=== PATIENT | female | born 1960 | race Caucasian/White ===

== ENCOUNTER → 2017-05-05 | Outpatient (CLI) | payer MEDICARE ==
[~2017-05-05] MED LIST: 0.9 % SODIUM CHLORIDE 10 ML VIAL ONE; IOHEXOL 300 MG/ML 50 ML VIAL. ONE; LIDOCAINE 1% PF 30 ML VIAL. ONE; methylPREDNISolone ACETATE 80 MG/ML VIAL. ONE
== END | disposition home or self-care (01) ==
LOC: SURG 08:49
PROVIDERS: ATTEND Anesthesiology Pain Medicine
DX: M54.16 Radiculopathy, lumbar region (principal)
CPT/HCPCS: 62323; 99205; J1040; J2001; Q9967

== ENCOUNTER → 2017-10-06 | Outpatient (CLI) | payer MEDICARE, MEDICAID | END | disposition home or self-care (01) | LOC: SURG 13:34 | PROVIDERS: ATTEND Anesthesiology Pain Medicine | DX: M54.16 Radiculopathy, lumbar region (principal); M47.816 Spondylosis without myelopathy or radiculopathy, lumbar region; G89.4 Chronic pain syndrome; F11.90 Opioid use, unspecified, uncomplicated | CPT/HCPCS: 99214 ==

== ENCOUNTER → 2017-11-25 | Outpatient (CLI) | payer MEDICARE, MEDICAID | END | disposition home or self-care (01) | LOC: SURG 09:33 | PROVIDERS: ATTEND Anesthesiology Pain Medicine | DX: M47.816 Spondylosis without myelopathy or radiculopathy, lumbar region (principal); M51.36 Other intervertebral disc degeneration, lumbar region; M96.1 Postlaminectomy syndrome, not elsewhere classified | CPT/HCPCS: 99214 ==

== ENCOUNTER → 2017-12-16 | Outpatient (CLI) | payer MEDICARE, MEDICAID | LOC: SURG 10:13 | PROVIDERS: ATTEND Anesthesiology Pain Medicine | DX: M54.16 Radiculopathy, lumbar region (principal); Z72.89 Other problems related to lifestyle; Z87.891 Personal history of nicotine dependence; Z87.39 Personal history of other diseases of the musculoskeletal system and connective tissue; Z86.73 Personal history of transient ischemic attack (TIA), and cerebral infarction without residual deficits | CPT/HCPCS: 62323; J1040; J2001; Q9967 ==

== ENCOUNTER 2018-01-10 19:50 | Emergency (ER) | payer MEDICARE, MEDICAID ==
[~2018-01-10] VITALS: Ht 170.2 cm; Wt 68.9 kg
--- NOTE | 2018-01-10 19:54 | ED.ADGEN ---
Adult General Chief Complaint Chief Complaint ".. I was up on a 6' ladder in my kitchen.. I attempted to stepped across to kitchen counter... and I went down on my butt, tail bone... and landed my Rt. arm and then on my Lt side my chest, back and spine...I was able to drive my self here.. but I am really hurting..." HPI HPI Patient is a 57 year old female who presents with above hx and complaints of fall while stepping off 6' ladder to kitchen counter. Pt. had generalized pain , but localized to back, pelvis and femur. Pt. denies head injury. Pt. was able to drive herself here and walk into ED. Pt. has multiple contusions. Pt. denies other injury. Hx. of recent dx. of UTI- Dr. Javier office. Not currently on antibiotics. Review of Systems Review of Systems Constitutional: Denies fever or chills [] Eyes: Denies change in visual acuity, redness, or eye pain [] HENT: Denies nasal congestion or sore throat [] Respiratory: Denies cough or shortness of breath [] Cardiovascular: No additional information not addressed in HPI [] GI: Denies abdominal pain, nausea, vomiting, bloody stools or diarrhea [] : Denies dysuria or hematuria [] Musculoskeletal: complaints of multiple contusions, arm and leg pain, back pain , pelvic pain Integument: Denies rash or skin lesions [] Neurologic: Denies headache, focal weakness or sensory changes [] Endocrine: Denies polyuria or polydipsia [] All other systems were reviewed and found to be within normal limits, except as documented in this note. Family History Family History Sister hx of Renal Cell Cancer Current Medications Current Medications Current Medications Medications (Trade) Dose Ordered Sig/Feli Start Time Stop Time Status Last Admin Dose Admin Ceftriaxone Sodium 1 gm/ Sodium Chloride 50 ml @ 100 mls/hr 1X ONCE 01/10/18 23:00 01/10/18 23:19 DC 01/10/18 22:49 100 MLS/HR Ceftriaxone Sodium (Rocephin) 1 gm STK-MED ONCE 01/10/18 22:45 01/10/18 22:46 DC Cephalexin HCl (Keflex) 250 mg STK-MED ONCE 01/10/18 23:09 01/10/18 23:10 DC Iohexol (Omnipaque 300 Mg/ml) 75 ml 1X ONCE 01/10/18 21:15 01/10/18 21:16 DC 01/10/18 21:10 75 ML Lactated Ringer's 1,000 ml @ 1,000 mls/hr Q1H 01/10/18 20:30 01/10/18 21:29 DC 01/10/18 21:28 1,000 MLS/HR Morphine Sulfate (Morphine 10mg Syringe) 10 mg 1X ONCE 01/10/18 23:00 01/10/18 23:02 DC 01/10/18 23:14 10 MG Orphenadrine Citrate (Norflex) 60 mg 1X ONCE 01/10/18 20:15 01/10/18 20:16 DC 01/10/18 21:27 60 MG Sodium Chloride 50 ml @ As Directed STK-MED ONCE 01/10/18 22:45 01/10/18 22:46 DC Allergies Allergies Allergies Coded Allergies Type Severity Reaction Last Updated Verified No Known Drug Allergies 01/10/18 No Physical Exam Physical Exam Constitutional: in o acute distress, non-toxic appearance. [] HENT: Normocephalic, atraumatic, bilateral external ears normal, oropharynx moist, no oral exudates, nose normal. [] Eyes: PERRLA, EOMI, conjunctiva normal, no discharge. [] Neck: Normal range of motion, no tenderness, supple, no stridor. [] Cardiovascular:Heart rate regular rhythm, no murmur [] Lungs & Thorax: Bilateral breath sounds equal with scattered wheezes on auscultation []Chest wall and back pain Abdomen: Bowel sounds normal, soft, no tenderness, no masses, no pulsatile masses. [] lt. flank tenderness and Lt. hip. Skin: Warm, dry, no erythema, no rash. [] contusions Back: thoracic and lumbar tenderness, Lt CVA tenderness. [] Extremities: Lt. hip, tenderness, no cyanosis, no clubbing, ROM intact, no edema. [] Neurologic: Alert and oriented X 3, normal motor function, normal sensory function, no focal deficits noted. [] Psychologic: Affect anxious , judgement normal, mood normal. [] Current Patient Data Vital Signs Vital Signs Date Time Temp Pulse Resp B/P (MAP) Pulse Ox O2 Delivery O2 Flow Rate FiO2 01/10/18 23:14 16 95 01/10/18 22:30 79 112/72 (85) Room Air 01/10/18 20:11 98.2 Lab Results Laboratory Tests Test 01/10/18 20:19 01/10/18 21:30 White Blood Count 7.1 x10^3/uL (4.0-11.0) Red Blood Count 4.37 x10^6/uL (3.50-5.40) Hemoglobin 13.8 g/dL (12.0-15.5) Hematocrit 40.3 % (36.0-47.0) Mean Corpuscular Volume 92 fL (79-100) Mean Corpuscular Hemoglobin 32 pg (25-35) Mean Corpuscular Hemoglobin Concent 34 g/dL (31-37) Red Cell Distribution Width 15.0 % (11.5-14.5) H Platelet Count 273 x10^3/uL (140-400) Neutrophils (%) (Auto) 63 % (31-73) Lymphocytes (%) (Auto) 29 % (24-48) Monocytes (%) (Auto) 7 % (0-9) Eosinophils (%) (Auto) 0 % (0-3) Basophils (%) (Auto) 0 % (0-3) Neutrophils # (Auto) 4.5 x10^3uL (1.8-7.7) Lymphocytes # (Auto) 2.1 x10^3/uL (1.0-4.8) Monocytes # (Auto) 0.5 x10^3/uL (0.0-1.1) Eosinophils # (Auto) 0.0 x10^3/uL (0.0-0.7) Basophils # (Auto) 0.0 x10^3/uL (0.0-0.2) Prothrombin Time 9.3 SEC (9.4-11.4) L Prothrombin Time INR 0.9 (0.9-1.1) PTT 26 SEC (23-33) Sodium Level 143 mmol/L (136-145) Potassium Level 4.0 mmol/L (3.5-5.1) Chloride Level 107 mmol/L (98-107) Carbon Dioxide Level 26 mmol/L (21-32) Anion Gap 10 (6-14) Blood Urea Nitrogen 18 mg/dL (7-20) Creatinine 1.0 mg/dL (0.6-1.0) Estimated GFR (Cockcroft-Gault) 57.1 Glucose Level 106 mg/dL (70-99) H Calcium Level 9.2 mg/dL (8.5-10.1) Total Bilirubin 0.4 mg/dL (0.2-1.0) Direct Bilirubin 0.1 mg/dL (0.0-0.2) Aspartate Amino Transferase (AST) 15 U/L (15-37) Alanine Aminotransferase (ALT) 19 U/L (14-59) Alkaline Phosphatase 121 U/L (46-116) H Creatine Kinase 70 U/L (26-192) Troponin I Quantitative < 0.017 ng/mL (0-0.055) BM-Nyh-X-Type Natriuretic Peptide 63 pg/mL (0-124) Total Protein 7.5 g/dL (6.4-8.2) Albumin 3.6 g/dL (3.4-5.0) Lipase 395 U/L (73-393) H Urine Collection Type Unknown Urine Color Brown Urine Clarity Turbid Urine pH 5.0 Urine Specific [place] 1.025 Urine Protein (NEG-TRACE) Urine Glucose (UA) mg/dL (NEG) Urine Ketones (Stick) mg/dL (NEG) Urine Blood (NEG) Urine Nitrite (NEG) Urine Bilirubin Neg (NEG) Urine Urobilinogen Dipstick mg/dL (0.2 mg/dL) Urine Leukocyte Esterase (NEG) Urine RBC 1-2 /HPF (0-2) Urine WBC 5-10 /HPF (0-4) Urine Squamous Epithelial Cells Many /LPF Urine Bacteria Many /HPF (0-FEW) Urine Hyaline Casts Few /HPF Urine Mucus Mod /LPF Urine Opiates Screen Pos (NEG) Urine Methadone Screen Neg (NEG) Urine Barbiturates Neg (NEG) Urine Phencyclidine Screen Neg (NEG) Urine Amphetamine/Methamphetamine Neg (NEG) Urine Benzodiazepines Screen Neg (NEG) Urine Cocaine Screen Neg (NEG) Urine Cannabinoids Screen Pos (NEG) Urine Ethyl Alcohol Neg (NEG) EKG EKG My interpretation of EKG shows a sinus rhythm at 82 bpm no acute morphology.[] Radiology/Procedures Radiology/Procedures My interpretation of chest x-ray shows no acute cardiopulmonary findings. Findings of emphysema. And some hilar fullness. My interpretation of pelvis shows no obvious fracture dislocation. My interpretation of Lt. arm shows no obvious fracture or dislocation and elbow. My interpretation Lt. shoulder shows no obvious fracture dislocation[]. My interpretation Lt. humerus shows no obvious fracture dislocation. CT findings of spine shows no obvious fracture or dislocations. CT of chest and abdomen shows a 1.5 cm left renal mass. Also has findings of pulmonary nodules. Bullous emphysema. Course & Med Decision Making Course & Med Decision Making Pertinent Labs and Imaging studies reviewed. (See chart for details). Rest. Ice packs. Expect increased discomfort and stiffness. Take Tylenlon and ibuprofen for pain. Take Vicoprofen for marked pain. Keep follow up with primary. Will need follow up for pul. nodules and Lt. renal mass. May need bx of Lt. renal mass. Follow up urine cultures. Take Keflex 500 three times a day. Stop smoking. Must followup. Return if any concerns. [] Final Impression Final Impression 1. Fall 2. Contusions Rt arm, back, Lt. hip, chest 3. Sprain / Strain, Rt arm, back, lt. hip, chest 4. Hx. of recent UTI- per hx from her Dr. office- 5. Lt. flank contusions 6. Pulmonary - bullous emphysema, Pul. nodules 7. Lt. Renal Mass 8. Elevate Lipase [] Dragon Disclaimer Dragon Disclaimer This electronic medical record was generated, in whole or in part, using a voice recognition dictation system. SARBJIT DAMON MD Jan 10, 2018 19:54
--- NOTE | 2018-01-10 20:14 | EKG ---
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
[2018-01-10] MEDS ORDERED: MORPHINE SULFATE 10 MG/ML SYRINGE. SQ ONE ×2 (20:15→23:00)
[2018-01-10] MEDS ORDERED: ORPHENADRINE CITRATE 60 MG/2 ML VIAL. IM ONE (20:15)
[2018-01-10] MEDS ORDERED: IV RINGERS SOLUTION,LACTATED 1,000 ML IV SCH (20:30)
[2018-01-10 20:45] LABS: BASO % 0 % (0-3); EOS % 0 % (0-3); HEMATOCRIT 40.3 % (36.0-47.0); HEMOGLOBIN 13.8 g/dL (12.0-15.5); LYMPH # 2.1 x10^3/uL (1.0-4.8); LYMPH % 29 % (24-48); MEAN CORPUSCULAR HEMOGLOBIN 32 pg (25-35); MEAN CORPUSCULAR HGB CONC 34 g/dL (31-37); MEAN CORPUSCULAR VOLUME 92 fL (79-100); MONO # 0.5 x10^3/uL (0.0-1.1); MONO % 7 % (0-9); NEUT # 4.5 x10^3uL (1.8-7.7); NEUT % 63 % (31-73); PLATELET COUNT 273 x10^3/uL (140-400); RED BLOOD COUNT 4.37 x10^6/uL (3.50-5.40); WHITE BLOOD COUNT 7.1 x10^3/uL (4.0-11.0)
[2018-01-10 20:55] LABS: ALBUMIN 3.6 g/dL (3.4-5.0); CALCIUM 9.2 mg/dL (8.5-10.1); DIRECT BILIRUBIN 0.1 mg/dL (0.0-0.2); GFR 57.1; TOTAL BILIRUBIN 0.4 mg/dL (0.2-1.0); TOTAL PROTEIN 7.5 g/dL (6.4-8.2)
--- NOTE | 2018-01-10 21:12 | RAD ---
CT scan of the pelvis without contrast 01/10/2018 CLINICAL HISTORY: Fall from ladder. Pelvic and left hip pain. TECHNIQUE: Unenhanced, contiguous, 0.625 mm axial sections were obtained through the pelvis and both hips. 5 mm reconstructed sagittal, axial and coronal images were obtained. One or more of the following individualized dose reduction techniques were utilized for this study: 1. Automated exposure control. 2. Adjustment of the mA and/or kV according to patient size. 3. Use of iterative reconstruction technique. FINDINGS: No pelvic bone fracture is seen. Both hips are intact. Mild degenerative changes are seen involving both hips and both SI joints. Atherosclerotic calcification of the distal abdominal aorta and its branches is noted. No free fluid or pelvic hematoma is noted. IMPRESSION: No acute abnormality. Electronically signed by: Jim Comer MD (01/10/2018 9:08 PM) [facility]
[2018-01-10] MEDS ORDERED: IOHEXOL 300 MG/ML 75 ML VIAL. IV ONE (21:15)
--- NOTE | 2018-01-10 21:19 | RAD ---
CT scan of the thoracic and lumbar spine without contrast 01/10/2018 CLINICAL HISTORY: Mid and low back pain post fall from ladder. TECHNIQUE: Unenhanced, contiguous, 0.625 mm axial sections were obtained through the thoracic and lumbar spine. 3 mm reconstructed sagittal, axial and coronal images were obtained. FINDINGS: Sagittal and coronal reconstructed images demonstrate minimal S-shaped curvature of the thoracolumbar spine. The patient is post anterior discectomy and fusion using an anterior plate, bone screws and bone graft material extending from C5 to C7. Degenerative changes are seen involving the thoracic and lumbar disc spaces consisting of varying degrees of disc space narrowing, vertebral endplate sclerosis and minimal to mild anterior and posterior vertebral body osteophyte formation. Atherosclerotic calcification is seen involving the thoracic and abdominal aorta. No fracture or subluxation of the thoracic or lumbar vertebra is seen. The patient is post left hemilaminotomy at L3-4 and L5-S1 and bilateral hemilaminotomy at L4-5. IMPRESSION: No fracture or subluxation of the thoracic or lumbar vertebra is seen. Electronically signed by: Jim Comer MD (01/10/2018 9:16 PM) [facility]
[2018-01-10 21:52] LABS: BARBITURATES NEG (NEG); BENZODIAZEPINES NEG (NEG); CANNABINOIDS POS (NEG); COCAINE NEG (NEG); METHADONE NEG (NEG); OPIATES POS (NEG); PHENCYCLIDINE NEG (NEG)
--- NOTE | 2018-01-10 21:52 | RAD ---
CT scan of the chest, abdomen and pelvis with contrast 01/10/2018 CLINICAL HISTORY: Fall from ladder with chest, abdominal and pelvic pain. TECHNIQUE: After the intravenous administration of 75 cc of Omnipaque 300 only, contiguous, 3 mm axial sections were obtained through the chest, abdomen and pelvis. One or more of the following individualized dose reduction techniques were utilized for this study: 1. Automated exposure control. 2. Adjustment of the mA and/or kV according to patient size. 3. Use of iterative reconstruction technique. FINDINGS: No mediastinal hematoma is seen. Scattered atherosclerotic calcification of the thoracic aorta and its branches is noted. The thoracic aorta is mildly tortuous but tapers normally. The heart is normal in size. Prominent likely reactive mediastinal and hilar lymph nodes are seen. They measure 1 to 1.6 cm in size. Small calcified hilar and mediastinal lymph nodes are noted. Mild bullous emphysematous changes are seen involving both lungs. Minimal dependent subsegmental atelectasis is seen bilaterally. No area of consolidation is seen. No pneumothorax or pleural effusion is noted. The liver, spleen, and adrenal glands are within normal limits. Prominence of the main pancreatic duct is seen. No acute focal abnormality of the pancreas is noted. Several rounded low-attenuation lesions are seen scattered throughout both kidneys. These measure 3 mm to 5 mm in size. They likely represent cysts. A 1.5 cm slightly heterogeneous solid-appearing rounded mass is seen involving the superior pole of the left kidney. Its CT appearance is nonspecific. A small renal cell carcinoma is not excluded. Moderate atherosclerotic calcification of the abdominal aorta and its branches is noted. The abdominal aorta tapers normally. Surgical clips are seen within the gallbladder fossa consistent with a cholecystectomy. No free fluid or free air is seen within the abdomen. There is no evidence of bowel obstruction. Images through pelvis demonstrate the urinary bladder distended with urine. Calcifications are seen within the pelvis consistent with phleboliths. No free fluid is seen. No pelvic hematoma is noted. Degenerative changes are seen involving the thoracic and lumbar spine. No acute fracture is seen. IMPRESSION: 1. 1.5 cm solid-appearing mass is seen projecting laterally from the superior pole of the left kidney. A small renal cell carcinoma is not excluded. 2. No acute abnormality is seen involving the chest, abdomen or pelvis. Electronically signed by: Jim Comer MD (01/10/2018 9:48 PM) [facility]
[2018-01-10 22:00] LABS: BILIRUBIN,URINE NEG (NEG); CLARITY,URINE TURBID; COLOR,URINE BROWN; HYALINE CASTS, URINE FEW /HPF
--- NOTE | 2018-01-10 22:00 | RAD ---
Three-view left shoulder radiographs to include AP and lateral left humerus radiographs and 3 view radiographs of the left elbow 01/10/2018 CLINICAL HISTORY: Fall from ladder with left shoulder, arm and elbow pain. AP internal and external rotation and transscapular digital radiographs of the left shoulder were obtained. AP and lateral radiographs of the left humerus were obtained. AP, lateral and oblique digital radiographs of the left elbow were obtained. No fracture or dislocation of the left shoulder, left humerus or left elbow is seen. There is no radiographic evidence of a left elbow joint effusion. Mild degenerative changes are seen involving the left AC and left humeral joints along with the left elbow. IMPRESSION: No fracture or dislocation is seen. Electronically signed by: Jim Comer MD (01/10/2018 9:56 PM) [facility]
[2018-01-10 22:02] LABS: BACTERIA,URINE MANY /HPF (0-FEW); SQUAMOUS EPITHELIAL CELL,UR MANY /LPF
[2018-01-10 22:30] VITALS: BP 112/72
[2018-01-10] MEDS ORDERED: HYDR-79 PO (22:39)
[2018-01-10 22:40] LABS: AMPHETAMINE/METHAMPHETAMINE NEG (NEG)
[2018-01-10] MEDS ORDERED: cefTRIAXone SODIUM 1 GM VIAL IV ONE (22:45)
[2018-01-10] MEDS ORDERED: IV NORMAL SALINE 50ML 50 ML ONE (22:45)
[2018-01-10] MEDS ORDERED: CEPH-264 PO (23:03)
[2018-01-10] MEDS ORDERED: CEPHALEXIN 250 MG CAPSULE ONE (23:09)
--- NOTE | 2018-01-10 23:35 | RAD ---
PA and lateral chest radiographs 01/10/2018 CLINICAL HISTORY: Fall from ladder with chest trauma. PA and lateral digital radiographs of the chest were obtained. An anterior plate and bone screws overlies the lower cervical spine. The cardiac silhouette is within normal limits in size. Atherosclerotic calcification of the thoracic aorta is seen. No acute pulmonary infiltrate is noted. No pneumothorax or pleural effusion is seen. The osseous structures are grossly intact. IMPRESSION: No acute abnormality is seen. Electronically signed by: Jim Comer MD (01/10/2018 11:31 PM) [facility]
[2018-01-11] MEDS ORDERED: CEPHALEXIN 250 MG CAPSULE PO SCH (09:00)
== END 2018-01-10 23:18 | disposition home or self-care (01) ==
LOC: ER 19:50
DX: S43.402A Unspecified sprain of left shoulder joint, initial encounter (principal); S63.502A Unspecified sprain of left wrist, initial encounter; S53.402A Unspecified sprain of left elbow, initial encounter; S73.102A Unspecified sprain of left hip, initial encounter; S23.3XXA Sprain of ligaments of thoracic spine, initial encounter; S33.5XXA Sprain of ligaments of lumbar spine, initial encounter; S23.9XXA Sprain of unspecified parts of thorax, initial encounter; S30.1XXA Contusion of abdominal wall, initial encounter; J43.9 Emphysema, unspecified; R91.8 Other nonspecific abnormal finding of lung field; R74.8 Abnormal levels of other serum enzymes; N28.89 Other specified disorders of kidney and ureter; Z87.440 Personal history of urinary (tract) infections; W11.XXXA Fall on and from ladder, initial encounter; Y93.89 Activity, other specified; Y92.090 Kitchen in other non-institutional residence as the place of occurrence of the external cause; Y99.8 Other external cause status
CPT/HCPCS: 36415; 71046; 71260; 72128; 72131; 72192; 73030; 73060; 73080; 74177; 80048; 80076; 80307; 81001; 82550; 83690; 83880; 84484; 85025; 85610; 85730; 87086; 93005; 96365; 96372; 99285; J0696; J2270; J2360; J7120; Q9967; G0479

== ENCOUNTER → 2018-01-13 | Outpatient (CLI) | payer MEDICARE, MEDICAID ==
[2018-01-10 22:30] VITALS: BP 112/72
[~2018-01-13] MED LIST changes: -0.9 % SODIUM CHLORIDE 10 ML VIAL ONE; +CEPH-264 PO; +HYDR-79 PO; -IOHEXOL 300 MG/ML 50 ML VIAL. ONE; -LIDOCAINE 1% PF 30 ML VIAL. ONE; -methylPREDNISolone ACETATE 80 MG/ML VIAL. ONE
== END | disposition home or self-care (01) ==
LOC: SURG 12:43
PROVIDERS: ATTEND Anesthesiology Pain Medicine
DX: M54.5 Low back pain (principal); M54.2 Cervicalgia; M62.838 Other muscle spasm; G89.4 Chronic pain syndrome; F11.90 Opioid use, unspecified, uncomplicated; J43.9 Emphysema, unspecified; Z87.440 Personal history of urinary (tract) infections; Z87.891 Personal history of nicotine dependence; Z87.39 Personal history of other diseases of the musculoskeletal system and connective tissue
CPT/HCPCS: 99214

== ENCOUNTER 2020-03-10 17:01 | Emergency (ER) | payer MEDICARE, MEDICAID ==
[~2020-03-10] VITALS: Ht 170.2 cm; Wt 79.3 kg
[~2020-03-10 17:01] MED LIST changes: +HYDR-1179 PO; -HYDR-79 PO
[2020-03-10] MEDS ORDERED: TETRACAINE 0.5% OPHTH SOLUTION 4ML BOTTLE. OD ONE (17:30)
[2020-03-10] MEDS ORDERED: FLUORESCEIN 1MG EYE STRIP. OD ONE (17:30)
[2020-03-10 17:47] VITALS: BP 94/58
[2020-03-10] MEDS ORDERED: CEPH-264 PO (18:24)
[2020-03-10] MEDS ORDERED: SULF1TAB24 PO (18:24)
--- NOTE | 2020-03-10 18:26 | PHYS DOC ---
Past History Past Medical History: Anxiety, Depression, High Cholesterol, UTI Past Surgical History: Cervical Fusion, , Lumbar Laminectomy, Other Additional Past Surgical Histo: CARPAL TUNNEL Alcohol Use: None Drug Use: Marijuana General Adult EDM: Chief Complaint: EYE PROBLEMS HPI: HPI: 60-year-old female past medical history significant for hyperlipidemia, anxiety and depression, presents the ED with complaints of right eyelid swelling for the past 4 days with associated headache. Patient states she has a history of recurrent shingles and this feels very similar. Does not wear any contact lenses or glasses. Denies any active vision loss. States she supposed to be seen by a window decorator regarding the chronic rash in her face but cannot due to this due to insurance. Does not wear contact lenses or glasses. Not recall any trauma to the eye. Asks if the bump over her worship needs to be cut. Review of Systems: Review of Systems: Constitutional: Denies fever or chills Eyes: Denies change in visual acuity or vision loss HENT: Denies nasal congestion or sore throat Respiratory: Denies cough or shortness of breath Cardiovascular: Denies chest pain or edema GI: Denies abdominal pain, nausea, vomiting, bloody stools or diarrhea : Denies dysuria Musculoskeletal: Denies back pain or joint pain Integument: Denies rash Neurologic: Denies headache, focal weakness or sensory changes Endocrine: Denies polyuria or polydipsia Lymphatic: Denies swollen glands Psychiatric: Denies depression or anxiety Heart Score: Risk Factors: Risk Factors: DM, Current or recent (<one month) smoker, HTN, HLP, family history of CAD, obesity. Risk Scores: Score 0 - 3: 2.5% MACE over next 6 weeks - Discharge Home Score 4 - 6: 20.3% MACE over next 6 weeks - Admit for Clinical Observation Score 7 - 10: 72.7% MACE over next 6 weeks - Early Invasive Strategies Current Medications: Current Meds: Current Medications Medications (Trade) Dose Ordered Sig/Feli Start Time Stop Time Status Last Admin Dose Admin Fluorescein Sodium (Ful-Zhane 1mg) 1 strip 1X ONCE 03/10/20 17:30 03/10/20 17:34 DC 03/10/20 17:30 1 STRIP Tetracaine HCl (Tetracaine) 1 drop 1X ONCE 03/10/20 17:30 03/10/20 17:31 DC 03/10/20 17:29 1 DROP Allergies: Allergies: Allergies Coded Allergies Type Severity Reaction Last Updated Verified No Known Drug Allergies 01/10/18 No Physical Exam: PE: Constitutional: Well developed, well nourished, no acute distress, non-toxic appearance. [] HENT: Normocephalic, atraumatic, bilateral external ears normal, oropharynx moist, no oral exudates, nose normal. [] Eyes: PERRLA, EOMI, conjunctiva normal, no discharge. [] No ciliary flush, fluorescein Wood's lamp exam performed in right eye with no fluorescein uptake, no dendritic lesions, no ciliary flush, no conjunctival injection, no abnormal eye discharge, patient with no vision loss, indurated right worship 2.5x2.5 raised abscess with erythema spreading to right upper eyelid that is edematous/closed shut, no fluctuance, no vesicular lesions over patient's face or TM-no active signs of herpes zoster, no black adorno or herpes opthalmicus Neck: Normal range of motion, no tenderness, supple, no stridor. [] Cardiovascular:Heart rate regular rhythm, no murmur [] Lungs & Thorax: Bilateral breath sounds clear to auscultation [] Abdomen: Bowel sounds normal, soft, no tenderness, no masses, no pulsatile masses. [] Skin: Warm, dry, no erythema, no rash. [] Back: No tenderness, Extremities: No tenderness, no cyanosis, no clubbing, ROM intact, no edema. [] Neurologic: Alert and oriented X 3, normal motor function, normal sensory function, no focal deficits noted. [] Psychologic: Affect normal, judgement normal, mood normal. [] Current Patient Data: Vital Signs: Vital Signs Date Time Temp Pulse Resp B/P (MAP) Pulse Ox O2 Delivery O2 Flow Rate FiO2 03/10/20 17:47 75 20 94/58 (70) 94 Room Air 03/10/20 17:20 98.3 EKG: EKG: [] Radiology/Procedures: Radiology/Procedures: [] Course & Med Decision Making: Course & Med Decision Making Pertinent Labs and Imaging studies reviewed. (See chart for details) Concern for indurated abscess (not ready for I&D) over right worship with cellulitis extending over patient's right eyelid and lower eyelid with no vision loss. No dendritic lesions or fluorescein uptake on Kc lamp exam. Will pre scribe Keflex and Bactrim to cover for MRSA and encourage warm compresses for abscess. Patient given strict ED return precautions for vision loss, pain behind the eye, headache, neck stiffness or worsening rash. Patient recommended to follow-up in 48 hours for repeat exam/to consider I&D. Encouraged urgent outpatient follow-up with PMD. Life-threatening processes were considered but are low suspicion at this time, given history and physical exam. Pt was educated on all prescription medications and adverse effects. All patient's questions were answered and pt was stable at time of discharge. Life/limb-threatening differential includes but is not limited to, acute angle- closure glaucoma, uveitis, corneal vision, foreign body, globe rupture, episcleritis, corneal ulcer, hyphema or empyema, orbital cellulitis, orbital hematoma, lens dislocation or orbital wall fracture. I spoken with the patient and her caregivers. I explained the patient's condition, diagnoses and treatment plan based on the information available to me at this time. I have answered the patient and her caregiver's questions and addressed any concerns. The patient and her caregivers have a good understanding of patient's diagnosis, condition and treatment plan as can be expected at this point. Vital signs have been stable. Patient's condition is stable and appropriate for discharge from the emergency department. Patient will pursue further outpatient evaluation with primary care physician or other designated or consulting physician as outlined in the discharge instructions. The patient and/or caregivers are agreeable to this plan of care and follow-up instructions have been explained in detail. The patient and/or caregivers have received these instructions in written form and have expressed an understanding of the discharge instructions. The patient and/or caregivers are aware that any significant change of condition or worsening of symptoms should prompt immediate return to this or the closest emergency department or call to 911. Theron Disclaimer: Theron Disclaimer: This electronic medical record was generated, in whole or in part, using a voice recognition dictation system. Departure Departure: Impression: Primary Impression: Periorbital cellulitis of right eye Additional Impression: Facial abscess Disposition: HOME/RESIDENCE PRIOR TO ADM Condition: STABLE Referrals: DAWNA PEDRAZA MD (PCP) wound check 48 hours to consider I&D Patient Instructions: Abscess, Periorbital Cellulitis Additional Instructions: EMERGENCY DEPARTMENT GENERAL DISCHARGE INSTRUCTIONS Thank you for coming to [facility] (ED) today and trusting us with you care. We trust that you had a positivie experience in our Emergency Department. If you wish to speak to the department management, you may call the director at [phone]. YOUR FOLLOW UP INSTRUCTIONS ARE FOLLOWS: 1. Do you have a private Doctor? If you do not have a private doctor, please ask for a resource list of physicians or clinics that may be able to assist you with follow up care. 2. The Emergency Physician has interpreted your x-rays. The X-Ray specialist will also review them. If there is a change in the findings, you will be notified in 48 hours when at all possible. 3. A lab test or culture has been done, your results will be reviewed and you will be notified if you need a change in treatment. ADDITIONAL INSTRUCTIONS AND INFORMATION: 1. Your care today has been supervised by a physician who is specially trained in emergency care. Many problems require more than one evaluation for a complete diagnosis and treatment. We recommend that you schedule your follow up appointment as recommended to ensure complete treatment of you illness or injury. If you are unable to obtain follow up care and continue to have a problem, or if your condition worsens, we recommend that you return to the ED. 2. We are not able to safely determine your condition over the phone nor are we able to give sound medical advice over the phone. For these safety reasons, if you call for medical advice we will ask you to come to the ED for further evaluation. 3. If you have any questions regarding these discharge instructions please call the ED at [phone]. SAFETY INFORMATION: In the interest of safety, wellness, and injury prevention; we encourage you to wear your sealbelt, if you smoke; quite smoking, and we encourage family to use a protective helmet for bicycling and other sporting events that present an increased risk for head injury. IF YOUR SYMPTOMS WORSEN OR NEW SYMPTOMS DEVELOP, OR YOU HAVE CONCERNS ABOUT YOUR CONDITION; OR IF YOUR CONDITION WORSENS WHILE YOU ARE WAITING FOR YOUR FOLLOW UP APPOINTMEN T; EITHER CONTACT YOUR PRIMARY CARE DOCTOR, THE PHYSICIAN WHOSE NAME AND NUMBER YOU WERE GIVEN, OR RETURN TO THE ED IMMEDIATELY. Scripts Sulfamethoxazole/Trimethoprim (BACTRIM DS TABLET) 1 Each Tablet 1 TAB PO BID for rash for 10 Days, #20 TAB 0 Refills Prov: VOHS,OSCAR M DO 03/10/20 Cephalexin (KEFLEX) 500 Mg Capsule 2 CAP PO BID for cellulitis for 10 Days, #40 CAP 0 Refills Prov: OSCAR SHAH DO 03/10/20 OSCAR SHAH DO Mar 10, 2020 18:26
[2020-03-10] MEDS ORDERED: METOCLOPRAMIDE 10 MG TABLET PO ONE (18:45)
[2020-03-10] MEDS ORDERED: DEXAMETHASONE 4 MG TABLET PO ONE (18:45)
[2020-03-10] MEDS ORDERED: diphenhydrAMINE HCL 25 MG CAPSULE PO ONE (18:45)
[2020-03-10] MEDS ORDERED: KETOROLAC 30 MG/ML VIAL. IM ONE (18:45)
== END 2020-03-10 18:53 | disposition home or self-care (01) ==
LOC: ER 17:01
DX: L03.213 Periorbital cellulitis (principal); L02.01 Cutaneous abscess of face; E78.00 Pure hypercholesterolemia, unspecified; Z87.440 Personal history of urinary (tract) infections; E78.5 Hyperlipidemia, unspecified; Z98.890 Other specified postprocedural states
CPT/HCPCS: 96372; 99284; J1885; J8540; J8597; Q0163

== ENCOUNTER 2020-03-13 19:48 | Emergency (ER) | payer MEDICARE, MEDICAID ==
[~2020-03-13] VITALS: Ht 170.2 cm; Wt 80.8 kg
[~2020-03-13 19:48] MED LIST changes: +SULF1TAB24 PO
--- NOTE | 2020-03-13 19:57 | PHYS DOC ---
Past History Past Medical History: Anxiety, Depression, High Cholesterol, UTI Past Surgical History: Cervical Fusion, , Lumbar Laminectomy, Other Additional Past Surgical Histo: CARPAL TUNNEL Alcohol Use: None Drug Use: Marijuana General Adult HPI: HPI: Patient is a 60 year old FEMALE who presents with for recheck for cellulitis. Post area of zoster approximately 1 yr ago and has postherpetic zoster pain pt. seen 03/10/2020 and started on Keflex for cellulitis. Pt. sent back for recheck of area of cellulitis. No abscess formation. Pt. denies history immunosuppression. No recent travel outside the [facility] Pt. follows with Dr. Pedraza Review of Systems: Review of Systems: Constitutional: Denies fever or chills Eyes: Denies change in visual acuity HENT: Complains of right facial cellulitis Respiratory: Denies cough or shortness of breath Cardiovascular: Denies chest pain or edema GI: Denies abdominal pain, nausea, vomiting, bloody stools or diarrhea : Denies dysuria Musculoskeletal: Denies back pain or joint pain Integument: Denies rash Neurologic: Denies headache, focal weakness or sensory changes Endocrine: Denies polyuria or polydipsia Lymphatic: Denies swollen glands Psychiatric: Denies depression or anxiety Heart Score: Risk Factors: Risk Factors: DM, Current or recent (<one month) smoker, HTN, HLP, family history of CAD, obesity. Risk Scores: Score 0 - 3: 2.5% MACE over next 6 weeks - Discharge Home Score 4 - 6: 20.3% MACE over next 6 weeks - Admit for Clinical Observation Score 7 - 10: 72.7% MACE over next 6 weeks - Early Invasive Strategies Family History: Family History: Noncontributory Current Medications: Current Meds: See nursing for home meds Allergies: Allergies: Allergies Coded Allergies Type Severity Reaction Last Updated Verified No Known Drug Allergies 01/10/18 No Physical Exam: PE: Constitutional: Moderate acute distress, non-toxic appearance. [] HENT: Normocephalic, atraumatic, bilateral external ears normal, oropharynx moist, no oral exudates, nose normal. Right facial cellulitis. Some adenopathy at angle jaw and church area Eyes: PERRLA, EOMI, conjunctiva normal, no discharge. [] Neck: Normal range of motion, no tenderness, supple, no stridor. Old surgical scars Cardiovascular:Heart rate regular rhythm, no murmur [] Lungs & Thorax: Bilateral breath sounds equal apex with scattered wheezes on auscultation [] Abdomen: Bowel sounds normal, soft, no tenderness, no masses, no pulsatile masses. Old surgery scars Skin: Warm, dry, no erythema, cellulitis right facial Back: No tenderness, no CVA tenderness. [] Extremities: No tenderness, no cyanosis, no clubbing, ROM intact, no edema. [] Neurologic: Alert and oriented X 3, normal motor function, normal sensory function, no focal deficits noted. [] Psychologic: Affect anxious, judgement normal, mood normal. [] EKG: EKG: [] Radiology/Procedures: Radiology/Procedures: [] Course & Med Decision Making: Course & Med Decision Making Pertinent Labs and Imaging studies reviewed. (See chart for details) Patient to use warm compresses of salt water or Epsom salts 4 times a day with care. Avoid salt water to the eye. After application warm compresses apply Polysporin 4 times a day. Patient take Bactrim DS twice a day. Patient continue her current Keflex. Patient follow-up primary care. Patient return if any concerns. Impression": 1. Rt. Facial Cellulitis 2. Hx. of post herpetic/zoster neuropathy [] Theron Disclaimer: Theron Disclaimer: This electronic medical record was generated, in whole or in part, using a voice recognition dictation system. Departure Departure: Disposition: 01 [place] HOME SELF CARE/HOMELESS Condition: STABLE Referrals: DAWNA PEDRAZA MD (PCP) Scripts Sulfamethoxazole/Trimethoprim (BACTRIM DS TABLET) 1 Each Tablet 1 TAB PO BID for cellulitis for 10 Days, #20 TAB 0 Refills Prov: SARBJIT DAMON MD 03/13/20 SARBJIT DAMON MD Mar 13, 2020 19:57
[2020-03-13 20:04] VITALS: BP 109/63
[2020-03-13] MEDS ORDERED: SULF1TAB24 PO (20:15)
[2020-03-13] MEDS ORDERED: SMZ/TMP 800/160MG TABLET. PO ONE (20:15)
[2020-03-13] MEDS ORDERED: cefTRIAXone IM 1 GM VIAL IM ONE (20:15)
[2020-03-13] MEDS ORDERED: KETOROLAC 60 MG/2 ML VIAL. IM ONE (20:15)
[2020-03-13] MEDS ORDERED: TETANUS AND DIPHTHERIA TOX/PF 0.5 ML VIAL. VAX IM ONE (20:30)
== END 2020-03-13 21:20 | disposition home or self-care (01) ==
LOC: ER 19:48
DX: L03.211 Cellulitis of face (principal); E78.00 Pure hypercholesterolemia, unspecified; Z87.440 Personal history of urinary (tract) infections
CPT/HCPCS: 90471; 90714; 96372; 99284; J0696; J1885

== ENCOUNTER 2021-03-19 21:18 | Emergency (ER) | payer MEDICARE, MEDICAID ==
[~2021-03-19] VITALS: Ht 170.2 cm; Wt 82.6 kg
--- NOTE | 2021-03-19 22:10 | RAD ---
Exam: Left foot 3 views INDICATION: Injury with lateral foot pain TECHNIQUE: Frontal, lateral oblique views of the left foot Comparisons: None FINDINGS: There is a subtle linear lucency at the base of the fifth metatarsal. Soft tissues are unremarkable. Joint spaces are well-maintained. Bone mineralization is normal. IMPRESSION: Nondisplaced transverse fracture at the base of the fifth metatarsal. Electronically signed by: Fausto Pendleton MD (03/19/2021 10:07 PM) MARIOLA
--- NOTE | 2021-03-19 22:15 | PHYS DOC ---
Past History Past Medical History: Anxiety, Depression, High Cholesterol, UTI Additional Past Medical Histor: CHRONIC BACK, NEUROPATHY Past Surgical History: Cervical Fusion, Cholecystectomy, , Lumbar Laminectomy, Other Additional Past Surgical Histo: CARPAL TUNNEL, NECK FUSION, LOWER BACK X 2 Additional Smoking Information: PACK/DAY Alcohol Use: Rarely Drug Use: Marijuana Adult General Chief Complaint Chief Complaint: LOWEREXTREMITY INJURY HPI HPI Patient is a 61 year old female who presents with left foot pain. Patient was getting up from the bed and twisted her left foot and has pain to the lateral aspect. She has no pain to the ankle or rest of the leg and denies injury to the rest of the body. She has no other complaints. Review of Systems Review of Systems Constitutional: Denies fever or chills Eyes: Denies change in visual acuity, redness, or eye pain HENT: Denies nasal congestion or sore throat Respiratory: Denies cough or shortness of breath Cardiovascular: No additional information not addressed in HPI GI: Denies abdominal pain, nausea, vomiting, bloody stools or diarrhea : Denies dysuria or hematuria Musculoskeletal: Denies back pain or joint pain Integument: Denies rash or skin lesions Neurologic: Denies headache, focal weakness or sensory changes Endocrine: Denies polyuria or polydipsia All other systems were reviewed and found to be within normal limits, except as documented in this note. Allergies Allergies Allergies Coded Allergies Type Severity Reaction Last Updated Verified No Known Drug Allergies 01/10/18 No Physical Exam Physical Exam Constitutional: Well developed, well nourished, no acute distress, non-toxic appearance. Eyes: PERRLA, EOMI, conjunctiva normal, no discharge. Neck: Normal range of motion, no tenderness, supple. Cardiovascular:Heart rate regular rhythm, no murmur Lungs & Thorax: Bilateral breath sounds clear to auscultation Abdomen: Bowel sounds normal, soft, no tenderness, no masses, no pulsatile masses. Back: No tenderness, no CVA tenderness. Extremities: Left foot laterally has tenderness on palpation with mild swelling. Dorsalis pedis and posterior tibialis pulses normal there is no ankle tenderness. Rest of the foot examination is normal. Rest of the musculoskeletal examination is normal. Neurologic: Alert and oriented X 3, normal motor function, normal sensory function, no focal deficits noted. Current Patient Data Vital Signs Vital Signs Date Time Temp Pulse Resp B/P (MAP) Pulse Ox O2 Delivery O2 Flow Rate FiO2 03/19/21 21:25 98.3 85 24 135/72 (93) 95 Room Air EKG EKG [] Radiology/Procedures Radiology/Procedures Left foot x-ray as per radiologist shows nondisplaced transverse fracture at the base of fifth metacarpal [] Heart Score C/O Chest Pain: No Risk Factors: Risk Factors: DM, Current or recent (<one month) smoker, HTN, HLP, family h istory of CAD, obesity. Risk Scores: Risk Factors: DM, Current or recent (<one month) smoker, HTN, HLP, family history of CAD, obesity. Course & Med Decision Making Course & Med Decision Making Pertinent Labs and Imaging studies reviewed. (See chart for details) Patient presented with left foot pain which she twisted upon getting up. She has a history of peripheral neuropathy at baseline and due to that sometimes has issues when she gets up. The x-ray as per radiology interpretation shows nondisplaced fifth metacarpal base fracture. I have placed her on a Ortho shoe and she is going to follow-up with orthopedic surgeon in the next 2 to 3 days. I instructed her that if she has pain she can use crutches for comfort as well as Advil for pain management. Dragon Disclaimer Dragon Disclaimer This electronic medical record was generated, in whole or in part, using a voice recognition dictation system. Departure Departure: Impression: Primary Impression: Foot fracture, left Disposition: HOME / SELF CARE / HOMELESS Condition: IMPROVED Referrals: YOLANDA PICKETT Jr. DO See orthopedic surgeon in 2-4 days Patient Instructions: Foot Fracture Additional Instructions: use boot to immobilize your foot and take advil for pain BALWINDER LEVI MD Mar 19, 2021 22:15
[2021-03-19 22:54] VITALS: BP 106/67
[2021-03-19] MEDS ORDERED: HYDROcodone/APAP 5/325MG 1 TAB TABLET PO ONE (23:00)
== END 2021-03-19 23:10 | disposition home or self-care (01) ==
LOC: ER 21:18
DX: S92.902A Unspecified fracture of left foot, initial encounter for closed fracture (principal); E78.5 Hyperlipidemia, unspecified; F12.10 Cannabis abuse, uncomplicated; Z90.49 Acquired absence of other specified parts of digestive tract; X50.1XXA Overexertion from prolonged static or awkward postures, initial encounter; Y93.89 Activity, other specified; Y92.89 Other specified places as the place of occurrence of the external cause; Y99.8 Other external cause status
CPT/HCPCS: 73630; 99283-25

== ENCOUNTER → 2021-05-11 | Outpatient (CLI) | payer MEDICARE, MEDICAID ==
--- NOTE | 2021-05-11 17:45 | RAD ---
EXAM: XR FOOT_LEFT 3 VIEWS 05/11/2021 9:15 AM CLINICAL INDICATION: Weight bearing, follow-up left foot fracture COMPARISON: Left foot radiograph 03/19/2021 TECHNIQUE: AP, oblique, and lateral views of the left lower lobe may be FINDINGS: There is increased sclerosis at the base of the fifth metatarsal, consistent with a healin g nondisplaced fracture. No new fracture or malalignment. Joint spaces are maintained. An os trigonum is noted. No soft tissue abnormality. IMPRESSION: Healing nondisplaced fifth metatarsal base fracture. Electronically signed by: Vickie Mann MD (05/11/2021 5:43 PM) [id number]
== END ==
LOC: RAD 09:08
PROVIDERS: ATTEND Podiatrist
DX: S92.355D Nondisplaced fracture of fifth metatarsal bone, left foot, subsequent encounter for fracture with routine healing (principal); X58.XXXD Exposure to other specified factors, subsequent encounter
CPT/HCPCS: 73630

== ENCOUNTER → 2021-07-03 | Outpatient (CLI) | payer MEDICARE, MEDICAID ==
[2021-07-03 10:22] LABS: BASO % 0 % (0-3); EOS % 0 % (0-3); HEMATOCRIT 42.4 % (36.0-47.0); HEMOGLOBIN 13.9 g/dL (12.0-15.5); LYMPH # 1.6 x10^3/uL (1.0-4.8); LYMPH % 24 % (24-48); MEAN CORPUSCULAR HEMOGLOBIN 31 pg (25-35); MEAN CORPUSCULAR HGB CONC 33 g/dL (31-37); MEAN CORPUSCULAR VOLUME 93 fL (79-100); MONO # 0.7 x10^3/uL (0.0-1.1); MONO % 10 % (0-9); NEUT # 4.5 x10^3uL (1.8-7.7); NEUT % 66 % (31-73); PLATELET COUNT 260 x10^3/uL (140-400); RED BLOOD COUNT 4.57 x10^6/uL (3.50-5.40); RED CELL DISTRIBUTION WIDTH 15.7 % (11.5-14.5); WHITE BLOOD COUNT 6.9 x10^3/uL (4.0-11.0)
[2021-07-03 10:31] LABS: ALBUMIN 3.8 g/dL (3.4-5.0); GFR 56.4; POTASSIUM 4.6 mmol/L (3.5-5.1); TOTAL BILIRUBIN 0.2 mg/dL (0.2-1.0); TOTAL PROTEIN 7.6 g/dL (6.4-8.2)
[2021-07-03 18:05] LABS: CHOLESTEROL/HDL RATIO 2.8; FREE T4 0.8 ng/dL (0.76-1.46)
[2021-07-03 18:06] LABS: THYROID STIM HORMONE (TSH) 2.241 uIU/mL (0.358-3.740)
[2021-07-04 01:07] LABS: HEMOGLOBIN A1C 5.7 % (4.8-5.6)
== END ==
LOC: LAB 09:39
PROVIDERS: ATTEND Physician Assistant
DX: Z79.899 Other long term (current) drug therapy (principal)
CPT/HCPCS: 36415; 80053; 80061; 83036; 84439; 84443; 84480; 85025